=== PATIENT | female | born 1995 | race American Indian/Alaskan Native ===

== ENCOUNTER 2018-10-08 11:21 | Inpatient (IN) | payer MEDICAID ==
[2018-10-08] MEDS ORDERED: LACTATED RINGERS 1,000 ML IV ONE (13:44)
[2018-10-08] MEDS ORDERED: MINERAL OIL PO PRN (13:59)
[2018-10-08] MEDS ORDERED: XYLOCAINE 2% INFILTRATI ONE (13:59)
[2018-10-08] MEDS ORDERED: NARCAN 0.4 MG/1 ML IV PRN (13:59)
[2018-10-08] MEDS ORDERED: ZOFRAN IV PRN (13:59)
[2018-10-08] MEDS ORDERED: BRETHINE IVP PRN (13:59)
[2018-10-08] MEDS ORDERED: BRETHINE SUB-Q PRN (13:59)
[2018-10-08] MEDS ORDERED: SUBLIMAZE IV PRN (13:59)
[2018-10-08] MEDS ORDERED: PITOCin/NS 30 UNIT/500ML 30 UNITS/500 ML BAG IV SCH (14:00)
[2018-10-08] MEDS ORDERED: PITOCin/NS 20 UNIT/1000ML DRIP 20 UNITS/1,000 ML BAG IV SCH (14:00)
[2018-10-08] MEDS ORDERED: AMPICILLIN/NS 2 GM/100 ML 2 GM/100 ML BAG IV ONE (14:03)
[2018-10-08 14:32] LABS: Hematocrit 38.3 % (30.3-42.9); Hemoglobin 13.2 gm/dl (10.1-14.3); Mean Corpuscular HGB Conc 35 % (30-34); Mean Corpuscular Volume 93 fl (79-97); Red Blood Count 4.13 M/mm3 (3.65-5.03); Red Cell Distribution Width 13.1 % (13.2-15.2)
[2018-10-08] MEDS ORDERED: CERVIDIL VG ONE (14:59)
--- NOTE | 2018-10-08 15:05 | History and Physical Report ---
History of Present Illness Date of examination: 10/08/18 Date of admission: 10/08/18 14:03 Chief complaint: contractions History of present illness: Pt is a 23 year old -[place] female MATT 10/08/18 at 40w0d presents with contractions since this morning and vaginal bleeding. Once she was admitted, she was found to have a BPP 09/15. She has had care at [facility] that has been complicated by a h/o genital herpes without lesion or prodrome. She is GBS negative. Past History Past Medical History: no pertinent history Past Surgical History: no surgical history ACCOUNT LIAISON History: herpes Family/Genetic History: diabetes Social history: no significant social history - Obstetrical History Expected Date of Delivery: 10/08/18 Actual Gestation: 40 Week(s) 0 Day(s) : 1 Medications and Allergies Allergies Allergy/AdvReac Type Severity Reaction Status Date / Time No Known Allergies Allergy Unverified 10/08/18 11:34 Active Meds: Active Medications Butorphanol Tartrate (Stadol) 2 mg IV Q2H PRN PRN Reason: Pain , Severe (7-10) Dinoprostone (Cervidil) 10 mg VG ONCE ONE Stop: 10/08/18 15:00 Ephedrine Sulfate (Ephedrine Sulfate) 10 mg IV Q2M PRN PRN Reason: Hypotension Fentanyl (Sublimaze) 100 mcg IV Q2H PRN PRN Reason: Labor Pain Oxytocin/Sodium Chloride (Pitocin/Ns 20 Unit/1000ml Drip) 20 units in 1,000 mls @ 125 mls/hr IV DIRECT MARLY Oxytocin/Sodium Chloride (Pitocin/Ns 30 Unit/500ml) 30 units in 500 mls @ 2 mls/hr IV TITR MARLY; Protocol Lactated Ringer's (Lactated Ringers) 1,000 mls @ 125 mls/hr IV DIRECT MARLY Ampicillin Sodium (Ampicillin/Ns 2 Gm/100 Ml) 2 gm in 100 mls @ 100 mls/hr IV ONCE ONE; Protocol Stop: 10/08/18 15:02 Ampicillin Sodium (Ampicillin/Ns 1 Gm/50 Ml) 1 gm in 50 mls @ 100 mls/hr IV Q4HR MARLY; Protocol Mineral Oil (Mineral Oil) 30 ml PO QHS PRN PRN Reason: Constipation Naloxone HCl (Narcan 0.4 Mg/1 Ml) 0.1 mg IV Q2MIN PRN PRN Reason: Res Rate </= 8 or 02 SAT < 92% Ondansetron HCl (Zofran) 4 mg IV Q8H PRN PRN Reason: Nausea And Vomiting Terbutaline Sulfate (Brethine) 0.25 mg SUB-Q ONCE PRN PRN Reason: Hyperstimulation/Hypertonicity Terbutaline Sulfate (Brethine) 0.25 mg IVP ONCE PRN PRN Reason: Hyperstimulation/Hypertonicity Review of Systems All systems: negative - Vital Signs Vital signs: Vital Signs Pulse BP 68 113/70 10/08/18 11:44 10/08/18 11:44 Temp Pulse Resp BP Pulse Ox 99.1 F 68 18 136/85 99 10/08/18 12:01 10/08/18 14:29 10/08/18 12:01 10/08/18 14:29 10/08/18 12:25 - Physical Exam Breasts: Positive: deferred Cardiovascular: Regular rate Lungs: Positive: Clear to auscultation Abdomen: Positive: soft (gravid ) Uterus: Positive: enlarged (gravid ) Extremities: Positive: normal - Obstetrical FHR: auscultation normal Uterine Contraction Monitor Mode: Palpation Cervical Dilatation: 1 (per RN ) Results Result Diagrams: 10/08/18 14:21 Abnormal lab results 10/08/18 Range/Units 14:21 MCHC 35 H (30-34) % RDW 13.1 L (13.2-15.2) % All other labs normal. Assessment and Plan A: IUP at 40w0d Nonreassuring status Genital Herpes without lesion or prodrome GBS Negative P: Admit to antepartum service Induction of labor with cervidil Routine intrapartum care
[2018-10-08] MEDS: LACTATED RINGERS 1,000 ML IV SCH ×2 (15:39→22:53)
[2018-10-08 15:51] LABS: Platelet Count 103 K/mm3 (140-440)
[2018-10-08] MEDS ORDERED: AMPICILLIN/NS 1 GM/50 ML 1 GM/50 ML BAG IV SCH (18:01)
[2018-10-08] MEDS: STADOL IV PRN (23:48)
[2018-10-09] MEDS ORDERED: XYLOCAINE 2% INFILTRATI ONE (02:28)
[2018-10-09] MEDS: STADOL IV PRN (02:39)
--- NOTE | 2018-10-09 03:29 | Procedure Note ---
OB Delivery Note - Delivery Date of Delivery: 10/09/18 Surgeon: RAMILA LANCASTER Estimated blood loss: 200cc - Vaginal Delivery presentation: vertex Delivery position: OA Intrapartum events: meconium, mult.variable deceleratio Delivery induction: cervidil Delivery monitor: external FHT, external uterine Route of delivery: Delivery placenta: spontaneous Delivery cord: nuchal cord (tight nuchal cord times 1), 3 umbilical vessels Episiotomy: midline Delivery repair: vicryl Anesthesia: local Delivery comments: Called to attend delivery due to primary OB in the OR. Spontaneous vaginal delivery at 02:33 of liveborn female infant weighing 6 lb. 1 oz. over 2nd degree episiotomy with apgars of 8/9. Meconium stained amniotic fluid; deep variable FHR decelerations noted just prior to delivery. Nuchal cord times 1, manually reduced. NICU called to attend delivery due to meconium. Baby was vigorous at and cried immediately. 3 vessel cord double clamped and cut and baby taken to radiant warmer for suctioning. Cord blood obtained. Spontaneous delivery of intact placenta and membranes at 02:35 by hernandez mechanism. EBL 200 cc. Pitocin to IV fluids after delivery of placenta. Fundus firm and midline. 2nd degree midline episiotomy repaired with 2-0 vicryl in usual sterile fashion. Vaginal sweep negative. Sponge count correct. No other lacerations noted. Mother and baby stable in birthing room.
[2018-10-09] MEDS ORDERED: TYLENOL PO PRN (05:13)
[2018-10-09] MEDS ORDERED: PHENERGAN PR PRN (05:13)
[2018-10-09] MEDS ORDERED: DERMOPLAST TP PRN (05:13)
[2018-10-09] MEDS ORDERED: SODIUM CHLORIDE FLUSH SYRINGE 10 ML IV PRN (05:13)
[2018-10-09] MEDS ORDERED: ZOFRAN IV PRN (05:13)
[2018-10-09] MEDS ORDERED: DULCOLAX PR PRN (05:13)
[2018-10-09] MEDS ORDERED: PITOCin/NS 20 UNIT/1000ML DRIP 20 UNITS/1,000 ML BAG IV SCH (05:13)
[2018-10-09] MEDS ORDERED: IBUPROFEN PO SCH (05:13)
[2018-10-09] MEDS ORDERED: PHENERGAN PO PRN (05:13)
[2018-10-09] MEDS ORDERED: LANSINOH TP PRN ×2 (05:13)
[2018-10-09] MEDS ORDERED: TUCKS PAD TP PRN (05:13)
[2018-10-09] MEDS ORDERED: BENADRYL PO PRN (05:13)
[2018-10-09] MEDS ORDERED: MILK OF MAGNESIA PO PRN (05:13)
[2018-10-09] MEDS: FEOSOL PO SCH ×2 (11:13→22:45)
[2018-10-09] MEDS: COLACE PO SCH ×2 (11:14→22:45)
[2018-10-09] MEDS: METHERGINE PO SCH ×2 (15:00→22:45)
[2018-10-09 15:13] LABS: Hematocrit 35.5 % (30.3-42.9); Mean Corpuscular HGB Conc 34 % (30-34); Mean Corpuscular Volume 94 fl (79-97); Red Blood Count 3.77 M/mm3 (3.65-5.03)
[2018-10-09 15:17] LABS: Platelet Count 99 K/mm3 (140-440)
[2018-10-09] MEDS: NORCO 5/325 PO PRN (22:44)
[2018-10-10] MEDS ORDERED: M-M-R II VACCINE SUB-Q ONE (03:24)
[2018-10-10] MEDS ORDERED: BOOSTRIX IM ONE (06:00)
[2018-10-10] MEDS: METHERGINE PO SCH ×3 (06:34→21:59)
[2018-10-10] MEDS: NORCO 5/325 PO PRN ×2 (06:34→17:46)
[2018-10-10] MEDS: COLACE PO SCH ×2 (10:33→21:59)
[2018-10-10] MEDS: FEOSOL PO SCH ×2 (10:33→21:59)
--- NOTE | 2018-10-10 10:54 | Progress Note ---
Assessment and Plan A: PPD#1 s/p at term P: routine care. Anticipate discharge tomorrow. Subjective - Subjective Date of service: 10/10/18 Principal diagnosis: s/p at term Interval history: Pt without complaints. Overnight, the baby had some difficulty maintaining her glucose level and was not feeding well until this morning. Patient reports: appetite normal, voiding normally, pain well controlled, ambulating normally : doing well Objective - Vital Signs Latest vital signs: Vital Signs Temp Pulse Resp BP BP Pulse Ox 10/10/18 07:41 98.1 F 62 18 120/73 98 10/10/18 00:54 98.5 F 73 18 124/78 98 10/09/18 16:10 97.7 F 72 18 116/64 Intake and Output 10/09/18 10/10/18 10/10/18 22:59 06:59 14:59 Intake Total 240 Output Total 400 Balance -160 Intake: Oral 240 Output: Urine 400 Void 400 Other: Total, Intake Amount 240 Total, Output Amount 400 - Exam Breasts: Present: deferred Cardiovascular: Present: Regular rate Lungs: Present: Clear to auscultation Abdomen: Present: soft Extremities: Present: normal - Labs Labs: Abnormal lab results 10/09/18 Range/Units 15:01 WBC 11.3 H (4.5-11.0) K/mm3 RDW 13.0 L (13.2-15.2) % Plt Count 99 L (140-440) K/mm3
[2018-10-11] MEDS: NORCO 5/325 PO PRN (00:43)
[2018-10-11] MEDS: METHERGINE PO SCH (07:27)
[2018-10-11] MEDS: COLACE PO SCH (09:46)
[2018-10-11] MEDS: FEOSOL PO SCH (09:46)
--- NOTE | 2018-10-11 09:48 | Ultrasound Report ---
Ultrasound obstetrical third trimester ULTRASOUND BIOPHYSICAL PROFILE INDICATION / CLINICAL INFORMATION: BEING WELLNESS. COMPARISON: None available. FINDINGS: Single living intrauterine BREATHING MOVEMENT = 2 GROSS BODY MOVEMENT = 2 TONE = 2 QUALITATIVE AMNIOTIC FLUID VOLUME = 2 TOTAL BIOPHYSICAL SCORE = 8/8 AMNIOTIC FLUID INDEX (cm) = 7.7 PRESENTATION: Cephalic. HEART RATE (beats per minute): 120 IMPRESSION: 1. biophysical profile = 8/8 2. Incidental note is made of the umbilical cord surrounding the neck of the fetus. The performing offset duplicating machine operator documented that the finding of umbilical cord around the fetus neck were s ent to the ordering physician Wilder Brunner M.D. at the time of the examination at 1:29 PM on 9. Signer Name: Yogi Sullivan MD Signed: 10/08/2018 2:33 PM Workstation Name: [id number]
--- NOTE | 2018-10-11 09:48 | Ultrasound Report ---
Ultrasound obstetrical third trimester ULTRASOUND BIOPHYSICAL PROFILE INDICATION / CLINICAL INFORMATION: BEING WELLNESS. COMPARISON: None available. FINDINGS: Single living intrauterine BREATHING MOVEMENT = 2 GROSS BODY MOVEMENT = 2 TONE = 2 QUALITATIVE AMNIOTIC FLUID VOLUME = 2 TOTAL BIOPHYSICAL SCORE = 8/8 AMNIOTIC FLUID INDEX (cm) = 7.7 PRESENTATION: Cephalic. HEART RATE (beats per minute): 120 IMPRESSION: 1. biophysical profile = 8/8 2. Incidental note is made of the umbilical cord surrounding the neck of the fetus. The performing storyboard artist documented that the finding of umbilical cord around the fetus neck were s ent to the ordering physician Wilder Brunner M.D. at the time of the examination at 1:29 PM on 9. Signer Name: Yogi Sullivan MD Signed: 10/08/2018 2:33 PM Workstation Name: [id number]
--- NOTE | 2018-10-11 11:35 | Progress Note ---
Assessment and Plan ppd 2 S/P . Doing well. Plan for discharge today. Subjective - Subjective Date of service: 10/11/18 Principal diagnosis: s/p at term Patient reports: appetite normal, voiding normally, pain well controlled, ambulating normally : doing well Objective - Vital Signs Latest vital signs: Vital Signs Temp Pulse Resp BP BP Pulse Ox 10/11/18 07:54 97.8 F 65 16 127/79 98 10/11/18 00:25 98.0 F 75 18 112/73 97 10/10/18 16:53 97.9 F 16 103/61 Intake and Output 10/10/18 10/11/18 10/11/18 22:59 06:59 14:59 Intake Total 240 240 120 Balance 240 240 120 Intake: Oral 240 240 120 Other: Total, Intake Amount 240 240 120 # Voids Void 1 1 1 - Exam Breasts: Present: deferred Abdomen: Present: normal appearance, soft, normal bowel sounds Uterus: Present: normal, firm, fundal height below umbilicus Extremities: Present: normal Incision: Present: normal
--- NOTE | 2018-10-11 11:37 | Discharge Summary ---
Providers - Providers Date of Admission: 10/08/18 14:03 Date of discharge: 10/11/18 Attending physician: KOKI PORTILLO Primary care physician: SMALL APPLIANCE ASSEMBLY SUPERVISOR Hospitalization Reason for admission: active labor Delivery: Laceration: 2nd degree complications: none Discharge diagnosis: IUP at term delivered [place] baby: female Hospital course: unremarkable Condition at discharge: Good Disposition: DC-01 TO HOME OR SELFCARE Plan - Discharge Medications Prescriptions: Ibuprofen [Motrin] 600 mg PO Q8H PRN #30 tablet PRN Reason: Pain HYDROcodone/APAP 5-325 [[place] 5/325] 1 each PO Q6HR PRN #20 tablet PRN Reason: Pain - Provider Discharge Summary Activity: routine, no sex for 6 weeks, no heavy lifting 4 weeks, no strenuous exercise Diet: routine Instructions: routine Additional instructions: [] Smoking cessation referral if applicable(refer to patient education folder for contact #) [] Refer to [facility] Booklet Call your doctor immediately for: * Fever > 100.5 * Heavy vaginal bleeding ( >1 pad per hour) * Severe persistent headache * Shortness of breath * Reddened, hot, painful area to leg or breast * Drainage or odor from incision. * Keep incision clean and dry at all times and follow doctor's instructions regarding bathing/showering - Follow up plan Follow up: KOKI PORTILLO MD [Family Provider] - 6 Weeks
[2018-10-11 14:25] VITALS: BP 123/86
== END 2018-10-11 14:35 | disposition home or self-care (01) | DRG 774 ==
LOC: TRG 11:21 → LD 14:03 → OB 10-09 05:16
PROVIDERS: ADMIT Obstetrics & Gynecology; ATTEND Obstetrics & Gynecology
PROC: 10E0XZZ Delivery of Products of Conception, External Approach (ICD-10-PCS; principal; 2018-10-09)
PROC: 0KQM0ZZ Repair Perineum Muscle, Open Approach (ICD-10-PCS; 2018-10-09)
PROC: 0W8NXZZ Division of Female Perineum, External Approach (ICD-10-PCS; 2018-10-09)
DX: O98.32 Other infections with a predominantly sexual mode of transmission complicating childbirth (principal); O77.0 Labor and delivery complicated by meconium in amniotic fluid; O76 Abnormality in fetal heart rate and rhythm complicating labor and delivery; O69.1XX0 Labor and delivery complicated by cord around neck, with compression, not applicable or unspecified; O70.1 Second degree perineal laceration during delivery; Z3A.40 40 weeks gestation of pregnancy; Z37.0 Single live birth
CPT/HCPCS: 36415; 59200; 76815; 76819; 85027; 86592; 86850; 86900; 86901; G0378; A6250; J0595; J2590; J7120